=== PATIENT | male | born 1995 | race Hispanic/Latino ===

== ENCOUNTER 2019-07-29 14:06 | Emergency (ER) | payer OTHER ==
[~2019-07-29] VITALS: Ht 165.1 cm; Wt 97.5 kg
[2019-07-29] MEDS ORDERED: NAPROSYN500 MG PO (14:26)
[2019-07-29] MEDS ORDERED: KEFLEX500 MG PO (14:26)
[2019-07-29] MEDS ORDERED: BACITRACIN15 GM TOP (14:27)
[2019-07-29] MEDS ORDERED: TETANUS/DIPHTHERIA TOX ADULT 0.5 ML SYR IM ONE (14:30)
[2019-07-29] MEDS ORDERED: TETANUS/DIPHTHERIA TOX ADULT 0.5 ML SYR ONE (14:31)
--- NOTE | 2019-07-29 14:36 | Emergency Department Note ---
History of Present Illnes History of Present Illness History of Present Illness This is a 23 year old male . 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) Onset quality: sudden Timing of current episode: constant Chronicity: new Context: Denies recent illness, Denies recent surgery, Denies recent immobilization, Denies recent travel, Denies trauma/injury, Denies new medications, Denies hx of DVT/PE, Denies non-compliance w/ medications, Denies other Relieving factors: none Exacerbating factors: movement Associated symptoms: Denies denies other symptoms, Denies confusion, Denies chest pain, Denies cough, Denies diaphoresis, Denies fever/chills, Denies headaches, Denies loss of appetite, Denies malaise, Denies nausea/vomiting, Denies rash, Denies seizure, Denies shortness of breath, Denies syncope, Denies weakness, Denies other Treatments prior to arrival: none Past Medical/Family History Physician Review I have reviewed the patient's past medical and family history. Any updates have been documented here. Past Medical History Recent Fever: No Clinical Suspicion of Infectio: No New/Unexplained Change in Ment: No Past Medical History: Asthma Past Surgical History: None Social History Smoking Cessation: Current every day smoker Alcohol Use: Occasional Any Illegal Drug Use: No Review of Systems Review of Systems Constitutional: Denies fever Musculoskeletal: Reports no symptoms Integumentary: Reports other (avulsion) Neurological: Denies numbness, Denies weakness Review of other systems: All other systems negative Physical Exam Related Data Vital signs reviewed: Yes Physical Exam CONSTITUTIONAL Constitutional: Present well-developed HENT HENT: Present normocephalic EYES Eyes: Reports conjunctivae normal NECK PULMONARY Pulmonary: Present breath sounds normal; Absent respiratory distress CARDIOVASCULAR Cardiovascular: Present regular rhythm GASTROINTESTINAL Abdominal: Present soft GENITOURINARY SKIN Skin: Present other (avulsion of skin from medial aspect of left thumb 5 cm by 1.5 cm, avulsion of skin left medial index finger 2cm by 2cm, right thum avulsion medial aspect 2 cm by 5 cm) MUSCULOSKELETAL Musculoskeletal: Present ROM normal NEUROLOGICAL Neurological: Present no gross motor or sensory deficits PSYCHOLOGICAL Psychological: Present mood/affect normal Assessment & Plan Medical Decision Making MDM fx, laceration Assessment & Plan Final Impression: (1) Laceration of left thumb (2) Laceration of right thumb (3) Laceration of left index finger Depart Disposition: HOME, SELF-[facility] Meds Active Scripts Bacitracin (BACITRACIN) 15 Gm Oint...g., 1 DOSE TOP BID, #1 TUB Prov:JOAO MEIER MD 07/29/19 Naproxen (NAPROSYN) 500 Mg Tablet, 500 MG PO BID for 7 Days, #14 TAB Prov:JOAO MEIER MD 07/29/19 Cephalexin Monohydrate (KEFLEX) 500 Mg Capsule, 500 MG PO QID for 10 Days, #40 Prov:JOAO MEIER MD 07/29/19 Medications in the ED Tetanus/ Diphtheria Toxoids 0.5 ml STK-MED ONCE .ROUTE ; Start 07/29/19 at 14:31; Stop 07/29/19 at 14:26; Status DC JOAO MEIER MD Jul 29, 2019 14:35
[2019-07-29] MEDS ORDERED: NEOMYCIN/POLYMYX/BACITR OINT 0.9 GM PKT ONE (14:38)
[2019-07-29] MEDS ORDERED: NEOMYCIN/POLYMYXIN/BACITRACIN 15 GM TUBE TOP ONE (16:00)
[2019-07-29] MEDS ORDERED: SILVER SULFADIAZINE 50GM CREAM TOP SCH (17:00)
== END 2019-07-29 15:04 | disposition home or self-care (01) ==
LOC: FSED 14:06
DX: S61.012A Laceration without foreign body of left thumb without damage to nail, initial encounter (principal); S61.011A Laceration without foreign body of right thumb without damage to nail, initial encounter; S61.211A Laceration without foreign body of left index finger without damage to nail, initial encounter; W26.8XXA Contact with other sharp object(s), not elsewhere classified, initial encounter; F17.210 Nicotine dependence, cigarettes, uncomplicated; J45.909 Unspecified asthma, uncomplicated
CPT/HCPCS: 90714; 99283